=== PATIENT | female | born 1975 | race Caucasian/White ===

== ENCOUNTER → 2020-09-12 | Outpatient (CLI) | payer BC ==
[~2020-09-12] MED LIST: HYDROCODONE-AC1 EACH PO; IBUPROFEN600 MG PO; PROVERA10 MG PO
[2020-09-12 11:23] LABS: HEMOGLOBIN 9.6 gm/dl (12.3-15.3); RED BLOOD COUNT 3.84 M/UL (4.00-5.10); WHITE BLOOD COUNT 5.9 K/UL (4.5-11.0)
== END ==
LOC: OPSV2 10:00
PROVIDERS: Obstetrics & Gynecology
DX: Z01.812 Encounter for preprocedural laboratory examination (principal); N92.0 Excessive and frequent menstruation with regular cycle
CPT/HCPCS: 36415; 81001; 84703; 85025

== ENCOUNTER → 2020-09-13 | Day surgery (SDC) | payer BC | END | disposition home or self-care (01) | LOC: OR 06:23 | PROVIDERS: Obstetrics & Gynecology | PROC: 0UB98ZZ Excision of Uterus, Via Natural or Artificial Opening Endoscopic (ICD-10-PCS; principal; 2020-09-13 07:30) | DX: N84.0 Polyp of corpus uteri (principal); E28.2 Polycystic ovarian syndrome; D64.9 Anemia, unspecified; J45.909 Unspecified asthma, uncomplicated; F41.9 Anxiety disorder, unspecified; F41.0 Panic disorder [episodic paroxysmal anxiety]; E66.01 Morbid (severe) obesity due to excess calories; Z68.42 Body mass index [BMI] 45.0-49.9, adult; Z20.822 Contact with and (suspected) exposure to COVID-19 | CPT/HCPCS: J1100; J1885; J2001; J2250; J2405; J2704; J2765; J2795; J3010; J7120 ==